=== PATIENT | male | born 1965 | race African-American/Black ===

== ENCOUNTER 2024-11-13 18:59 | Emergency (ER) | payer MEDICARE, MEDICAID ==
[~2024-11-13] VITALS: Ht 167.6 cm; Wt 94.6 kg
--- NOTE | 2024-11-13 20:07 | DVH ---
CLINICAL INDICATION: right hip pain TECHNIQUE: 2 radiographic views of the right hip were obtained. Comparison: None FINDINGS/IMPRESSION: There is no evidence of acute fracture or dislocation. The visualized joint space is well maintained. The alignment is anatomical. There is no radiopaque foreign body.
[2024-11-13 20:26] VITALS: BP 138/81; PULSE 87; RESP 16; TEMP 97.5; O2SAT 95
[2024-11-13] MEDS: IBUPROFEN 800 MG TAB PO ONE (20:56)
[2024-11-13] MEDS ORDERED: IBUP-1456 PO (20:56)
--- NOTE | 2024-11-13 20:56 | ED.PDOC ---
Musculoskeletal HPI Comments 59-year-old male presents to ER with complaints of right hip pain x1 week. Patient is present with manager primary care with PMH of mild intellectual disability, noting he has been experiencing right hip pain with numbness/tingling down lateral aspect of right leg x1 week. Denies any known injury but notes he does wear tight fitted belts daily. His current pain an 8/10 to right hip with radiation down right leg. Patient presents to ER ambulatory, in no distress. Denies fever, body aches, chills, calf pain or any further symptoms/complaints Chief Complaint: Lower Extremity Time Seen by MD: 19:25 Primary Care Provider: UNKNOWN Reviewed Notes: Nurses Notes, Medications, Allergies Allergies: Coded Allergies: No Known Drug Allergy (Verified Allergy, Unknown, 11/13/24) Home Meds Active Scripts Ibuprofen (Ibuprofen) 800 Mg Tab, 1 TAB PO TID PRN, #30 TAB 0 Refills Prov:JAIRO MAX 11/13/24 Information Source: Patient (and patients caregiver) Mode of Arrival: Ambulatory Past Medical History Past Medical History (Other): Mild intellectual disability Surgical History: Denies all surgeries Family History Family History: Unknown Social History Smoker: Non-Smoker Alcohol: Denies ETOH Use Drugs: Denies Drug Use Lives In: Home Constitutional: denies: chills, diaphoresis, fatigue, fever, malaise, sweats, weakness, others EENTM: denies: blurred vision, double vision, ear bleeding, ear discharge, ear drainage, ear pain, ear ringing, eye pain, eye redness, hearing loss, mouth pain, mouth swelling, nasal discharge, nose bleeding, nose congestion, nose pain, photophobia, tearing, throat pain, throat swelling, voice changes, others Respiratory: denies: cough, hemoptysis, orthopnea, SOB at rest, shortness of breath, SOB with excertion, stridor, wheezing, others Cardiovascular: denies: chest pain, dizzy spells, diaphoresis, Dyspnea on exertion, edema, irregular heart beat, left arm pain, lightheadedness, palpitations, PND, syncope, others Gastrointestinal: denies: abdomen distended, abdominal pain, blood streaked bowels, constipated, diarrhea, dysphagia, difficulty swallowing, hematemesis, melena, nausea, poor appetite, poor fluid intake, rectal bleeding, rectal pain, vomiting, others Genitourinary: denies: burning, dysuria, flank pain, frequency, hematuria, incontinence, penile discharge, penile sore, pain, testicle pain, testicle swelling, urgency, others Neurological: reports: others (As stated in HPI) Musculoskeletal: reports: others (As stated in HPI) Integumetry: denies: bruises, change in color, change in hair/nails, dryness, laceration, lesions, lumps, rash, wounds, others Allergic/Immunocompromised: denies: Difficulty Healing, Frequent Infections, Hives, Itching, others Hematologic/Lymphatic: denies: anemia, blood clots, easy bleeding, easy bruising, swollen glands, others Endocrine: denies: excessive hunger, excessive sweating, excessive thirst, excessive urination, flushing, intolerance to cold, intolerance to heat, unexplained weight gain, unexplained weight loss, others Psychiatric: denies: anxiety, bipolar disorder, depression, hopeless, panic disorder, schizophrenia, sleepless, suicidal, others Physical Exam General Appearance: No Apparent Distress HEENT: PERRL/EOMI Neck: Full Range of Motion, Non-Tender, Normal Respiratory: Chest Non-Tender, Lungs Clear, No Accessory Muscle Use, No Respiratory Distress, Normal Breath Sounds Cardiovascular: No Murmur, No Gallop, Regular Rate/Rhythm Breast Exam: Deferred Gastrointestinal: NOT DONE Genitalia: Deferred Pelvic: Deferred Rectal: Deferred Extremities: Normal capillary refill, Normal range of motion Musculoskeletal : Extremity Location: Hip (TTP to right hip noted. No erythema/skin changes appreciated. Pulses intact. Steady gait noted) Neurologic: Alert, No Motor Deficits, Normal Affect, Normal Mood, No Sensory Deficits Cerebellar Function: Normal Reflexes: Normal Skin: Dry, Normal Color, Warm Peripheral Pulses: 2+ femoral (R), 2+ femoral (L), 2+ dorsalis pedis (R), 2+ dorsalis pedis (L), 2+ Radial (R), 2+ Radial (L), 2+ Brachial (R), 2+ Brachial (L) Lymphatic: No Adenopathy Was a procedure done? Was a procedure done?: No Sedation Sedation?: No Differential Diagnosis EXT Differential Diagnosis: Fracture, Dislocation, Septic, Neurovascular injury X-Ray, Labs, Meds, VS Vital Signs Date Time Temp Pulse Resp B/P (MAP) Pulse Ox O2 Delivery O2 Flow Rate FiO2 11/13/24 20:26 95 Room Air* 0 21 11/13/24 20:26 97.5 87 16 138/81 (100) 95 97.5 11/13/24 19:20 97.5 87 16 138/81 (100) 95 97.5 Current Medications Medications (Trade) Dose Ordered Sig/Naomi Route Start Time Stop Time Status Last Admin Ibuprofen (Motrin Tablet) 800 mg ONCE ONCE PO 11/13/24 21:00 11/13/24 21:01 11/13/24 20:56 PATIENT: ANGEL WRIGHT AACCT: [id number]: [id number] : 1965 LOC: ER ROOM / BED: / AGE / SEX: 59 / M ADM STATUS: REG ER SERVICE 24 ORDERING PHYSICIAN: JAIRO MAX PROCEDURE(s): RHIP - R HIP COMPLETE XRAY REASON: right hip pain ORDER NUMBER(s): [id number], ACCESSION NUMBER(s): [id number] CLINICAL INDICATION: right hip pain TECHNIQUE: 2 radiographic views of the right hip were obtained. Comparison: None FINDINGS/IMPRESSION: There is no evidence of acute fracture or dislocation. The visualized joint space is well maintained. The alignment is anatomical. There is no radiopaque foreign body. ATED BY: HERON HORTON Jr., DO DICTATED DATE/TIME: 11/13/242003 SIGNED BY: HERON HORTON Jr., DO SIGNED DATE/TIME: 11/13/242003 CC: Right hip x-ray reviewed Ibuprofen 800 mg p.o. ordered Advised on avoidance of wearing tight-fitting belts Advised to follow up with PCP in 1-2 days Patient and patient's caregiver verbalized understanding and agreeable with current plan of care Advised to return to ER immediately if symptoms worsen Images Reviewed?: Images reviewed and evaluated by me Time of 1ST Reevaluation: 20:24 Reevaluation 1ST: N/A Patient Education/Counseling: Diagnosis, Treatment, Prognosis, Need For Follow Up Family Education/Counseling: Diagnosis, Treatment, Prognosis, Need For Follow Up Departure 1 Departure Time of Disposition: 20:50 Impression: Primary Impression: Lateral femoral cutaneous neuropathy Qualified Codes: G57.11 - Meralgia paresthetica, right lower limb Disposition: HOME / SELF CARE / HOMELESS Condition: Stable e-Prescriptions Ibuprofen (Ibuprofen) 800 Mg Tab 1 TAB PO TID PRN, #30 TAB 0 Refills Prov: JAIRO MAX 11/13/24 Discharged With: [facility] Critical Care Note Critical Care Time?: No Stability Stability form required: No Heart Score Heart Score: Heart Score Response (Comments) Value History N/A 0 EKG N/A 0 Age N/A 0 Risk Factors N/A 0 Troponin N/A 0 Total 0 JAIRO MAX Nov 13, 2024 20:56
== END 2024-11-13 21:03 | disposition home or self-care (01) ==
LOC: ER 19:04
DX: G57.11 Meralgia paresthetica, right lower limb (principal)
CPT/HCPCS: 73502